=== PATIENT | male | born 1950 | race Caucasian/White ===

== ENCOUNTER 2018-02-14 14:45 | Inpatient (IN) | payer MEDICARE, OTHER ==
[2018-02-14] VITALS (7 sets, daily range): BP systolic 146–166; BP diastolic 53–74; PULSE 85–94; RESP 16–20; TEMP 96.6–98; O2SAT 93–97
[~2018-02-14] VITALS: Ht 175.3 cm; Wt 88.9 kg
[~2018-02-14 14:45] MED LIST: ALBU8I INH; HYDR-2768 PO; LISI40TA PO; SYMB80AE INH; TAMS0.4C67 PO; ZITH250T PO
[2018-02-14] MEDS ORDERED: VENTAER INH (15:03)
--- NOTE | 2018-02-14 15:04 | PD ---
HPI Chief Complaint: Abnormal Results Time Seen by Provider: 15:03 Travel History International Travel<30 days: No Contact w/Intl Traveler<30days: No Traveled to known affect area: No History of Present Illness HPI 67-year-old male came to the emergency room with history of abnormal labs as seen by [facility] today. Patient was told that his blood sugar was 567 and his potassium was 2.7. Patient was diagnosed with diabetes but was on diet control. He says for past about 3-4 weeks he has been drinking a lot of water and urinating a lot as well. He has lost about 15 pounds. He has had some blurred vision. Patient has history of COPD and has been short of breath. He noticed some ankle swelling as well. No history of chest pain. No history of syncopal episode. [facility] had asked him to come to the emergency room to be checked out. Vital signs are stable. His bedside blood glucose in the ER read high on the monitor. No history of vomiting or diarrhea. Patient is not a smoker. [facility] Past Medical History Narrative Medical List of his past medical, surgical, social and family history is reviewed from the nursing note. Hx Anticoagulant Therapy: Yes (asa 81mg) Asthma: Yes Cardiovascular Problems: Yes (htn on meds) Diabetes: Yes Patient Takes Glucophage: No Diminished Hearing: No Hypertension: Yes Respiratory: Yes (hx of asthma) Influenza Vaccination: No Social History Alcohol Use: Yes (DAILY) Tobacco Use: No (Quit) Substance Use: No Allergies-Medications (Allergen,Severity, Reaction): Coded Allergies: No Known Allergies (Unverified Allergy, Unknown, 02/14/18) Comments No known drug allergies Reported Meds & Prescriptions Reported Meds & Active Scripts Active Reported Amlodipine (Amlodipine Besylate) 5 Mg Tab 5 Mg PO DAILY Singulair (Montelukast Sodium) 10 Mg Tab 10 Mg PO HS Asmanex 120 Act Twisthaler (Mometasone 120 Act Inh) 220 Mcg/Act Inh 1 Puff INH BID Atorvastatin (Atorvastatin Calcium) 20 Mg Tab 20 Mg PO HS Doxazosin (Doxazosin Mesylate) 4 Mg Tab 4 Mg PO DAILY Hydrochlorothiazide 25 Mg Tab 25 Mg PO DAILY Losartan (Losartan Potassium) 100 Mg Tab 100 Mg PO DAILY Ventolin Hfa 18 GM Inh (Albuterol Sulfate) 90 Mcg/Act Aer 2 Puff INH Q4-6H PRN Narrative Medication List of his home medications reviewed from the nursing note Review of Systems Except as stated in HPI: all other systems reviewed are Neg Endocrine: Positive: Polyuria, Polydipsia Physical Exam Narrative GENERAL: Awake, alert, mild distress SKIN: Focused skin assessment warm/dry. HEAD: Atraumatic. Normocephalic. EYES: Pupils equal and round. No scleral icterus. No injection or drainage. ENT: No nasal bleeding or discharge. Mucous membranes pink and moist. NECK: Trachea midline. No JVD. CARDIOVASCULAR: Regular rate and rhythm. No murmur appreciated. RESPIRATORY: No accessory muscle use. Clear to auscultation. Breath sounds equal bilaterally. GASTROINTESTINAL: Abdomen soft, non-tender, nondistended. Hepatic and splenic margins not palpable. MUSCULOSKELETAL: No obvious deformities. No clubbing. No cyanosis. 1+ pedal edema. NEUROLOGICAL: Awake and alert. No obvious cranial nerve deficits. Motor grossly within normal limits. Normal speech. PSYCHIATRIC: Appropriate mood and affect; insight and judgment normal. Data Data Last Documented VS Vital Signs Date Time Temp Pulse Resp B/P (MAP) Pulse Ox O2 Delivery O2 Flow Rate FiO2 02/14/18 16:06 95 Nasal Cannula 2.00 02/14/18 15:16 85 18 166/74 (104) 02/14/18 14:52 98.0 Orders Orders Electrocardiogram (02/14/18 15:11) Complete Blood Count With Diff (02/14/18 15:11) Comprehensive Metabolic Panel (02/14/18 15:11) Beta Hydroxybutyrate (Acetone) (02/14/18 15:11) Urinalysis - C+S If Indicated (02/14/18 15:11) Ecg Monitoring (02/14/18 15:11) Iv Access Insert/Monitor (02/14/18 15:11) Oximetry (02/14/18 15:11) NPO (02/14/18 15:11) Sodium Chlor 0.9% 1000 Ml Inj (Ns 1000 M (02/14/18 15:11) Sodium Chlor 0.9% 1000 Ml Inj (Ns 1000 M (02/14/18 15:41) Sodium Chloride 0.9% Flush (Ns Flush) (02/14/18 15:15) B-Type Natriuretic Peptide (02/14/18 15:18) Chest, Single Ap (02/14/18 ) Insulin Human Regular Inj (Novolin R Inj (02/14/18 15:45) Oxygen Administration (02/14/18 15:43) Albuterol-Ipratropium Neb (Duoneb Neb) (02/14/18 15:45) Sodium Chloride 0.9% Flush (Ns Flush) (02/14/18 15:45) Place In Observation (02/14/18 ) Vital Signs (Adult) Q4H (02/14/18 16:06) Activity Oob Ad Jennifer (02/14/18 16:06) Diet 1800 Ada Cons Carb (02/14/18 Dinner) Sodium Chlor 0.9% 1000 Ml Inj (Ns 1000 M (02/14/18 16:06) Sodium Chloride 0.9% Flush (Ns Flush) (02/14/18 16:15) Sodium Chloride 0.9% Flush (Ns Flush) (02/14/18 21:00) Acetaminophen (Tylenol) (02/14/18 16:15) Basic Metabolic Panel (Bmp) (02/15/18 06:00) Complete Blood Count With Diff (02/15/18 06:00) Naloxone Inj (Narcan Inj) (02/14/18 16:15) Bisacodyl Supp (Dulcolax Supp) (02/14/18 16:15) Consult Staffing Administrator (02/14/18 ) Potassium Chlor 20 Meq Premix (Kcl 20 Me (02/14/18 16:15) Potassium Chloride (Kcl) (02/14/18 16:15) Admit Order (Ed Use Only) (02/14/18 16:05) Labs Laboratory Tests Test 02/14/18 13:10 02/14/18 15:28 02/14/18 15:55 White Blood Count 7.0 TH/MM3 Red Blood Count 3.79 MIL/MM3 Hemoglobin 12.1 GM/DL Hematocrit 35.5 % Mean Corpuscular Volume 93.6 FL Mean Corpuscular Hemoglobin 31.8 PG Mean Corpuscular Hemoglobin Concent 33.9 % Red Cell Distribution Width 11.8 % Platelet Count 234 TH/MM3 Mean Platelet Volume 9.9 FL Neutrophils (%) (Auto) 72.2 % Lymphocytes (%) (Auto) 19.4 % Monocytes (%) (Auto) 6.2 % Eosinophils (%) (Auto) 1.6 % Basophils (%) (Auto) 0.6 % Neutrophils # (Auto) 5.1 TH/MM3 Lymphocytes # (Auto) 1.4 TH/MM3 Monocytes # (Auto) 0.4 TH/MM3 Eosinophils # (Auto) 0.1 TH/MM3 Basophils # (Auto) 0.0 TH/MM3 CBC Comment DIFF FINAL Differential Comment Blood Urea Nitrogen 31 MG/DL Creatinine 1.70 MG/DL Random Glucose 863 MG/DL Total Protein 7.2 GM/DL Albumin 3.0 GM/DL Calcium Level 8.6 MG/DL Alkaline Phosphatase 97 U/L Aspartate Amino Transf (AST/SGOT) 13 U/L Alanine Aminotransferase (ALT/SGPT) 25 U/L Total Bilirubin 0.6 MG/DL Sodium Level 128 MEQ/L Potassium Level 2.9 MEQ/L Chloride Level 89 MEQ/L Carbon Dioxide Level 29.0 MEQ/L Anion Gap 10 MEQ/L Estimat Glomerular Filtration Rate 40 ML/MIN Hemoglobin A1c 14.5 % B-Hydroxybutyrate 0.40 MMOL/L B-Type Natriuretic Peptide 50 PG/ML Urine Collection Type CLEAN CATCH Urine Color YELLOW Urine Turbidity CLEAR Urine pH 6.0 Urine Specific [place] LESS/EQUAL 1.005 Urine Protein NEG mg/dL Urine Glucose (UA) 1000 OR GREATER mg/dL Urine Ketones NEG mg/dL Urine Occult Blood NEG Urine Nitrite NEG Urine Bilirubin NEG Urine Urobilinogen 0.2 MG/DL Urine Leukocyte Esterase NEG Urine Squamous Epithelial Cells 0-5 /hpf Microscopic Urinalysis Comment CULT NOT INDICATED Urine Collection Time 1555 MDM Medical Decision Making Medical Screen Exam Complete: Yes Emergency Medical Condition: Yes Medical Record Reviewed: Yes Interpretation(s) Twelve-lead EKG was reviewed by me. Normal sinus rhythm, normal axis, nonspecific ST-T wave changes. Heart rate of 85 bpm. Differential Diagnosis Hyperglycemia, DKA, elect light abnormal Narrative Course 4:04 PM blood test results are back. Blood sugar is more than 800. Anion gap is within normal limit. Patient has hyponatremia and hypokalemia. I would order for potassium replacement. Awaiting for the hospitalist to call back for admission. Have ordered 10 units of insulin as well. 2 L of IV fluid boluses been given. Chest x-ray is within normal limits Critical Care Narrative Aggregate critical care time was 30 minutes. Time to perform other separately billable procedures was not included in the critical care time. My time did not include minutes spent treating any other patients simultaneously or on activities that did not directly contribute to the patient's treatment. The services I provided to this patient were to treat and/or prevent clinically significant deterioration that could result in: Hyperglycemia, hypokalemia, potassium replacement IV I provided critical care services requiring my management, as noted below: Chart data review, documentation time, medication orders and management, vital sign assessments/reviewing monitor data, ordering and reviewing lab tests, ordering and interpreting/reviewing x-rays and diagnostic studies, care of the patient and discussion of the patient with the admitting physicians. Procedures EKG Prior to Arrival: No Diagnosis Primary Impression: Hyperglycemia Additional Impression: Hypokalemia Admitting Information Admitting Physician Requests: Admit Scripts Insulin Aspart Inj (Novolog Inj) 100 Unit/Ml Inj 1 UNITS SQ ACHS SLIDING SCALE for diabetes for 30 Days, #1 VIAL 2 Refills Sliding scale as follows Less than 70 no insulin 150-199 1 unit 200-249 3 units 250-299 5 units 300-349 7 units greater than 349 9 units Prov: Yeny Steward 02/16/18 Metformin (Metformin) 500 Mg Tab 500 MG PO HS for Blood Sugar Management for 30 Days, #30 TAB 0 Refills With a meal Prov: Yeny Steward 02/16/18 Insulin Detemir Inj (Levemir Inj) 1,000 unit/ 10 ML Vial 10 UNITS SQ BID for diabetes for 30 Days, #1 VIAL 2 Refills Do not mix with any other Insulin. Prov: Yeny Steward 02/16/18 Blood Glucose Monitoring W/Device (Blood Glucose Monitoring W/Device) 1 Kit Kit KIT .XX DIRECTED for Blood Sugar Management, #1 0 Refills Prov: Yeny Steward 02/16/18 Blood Glucose Test Strips (Blood Glucose Test Strips) Strips Strip EA .XX DIRECTED for Blood Sugar Management, #1 0 Refills Prov: Yeny Steward 02/16/18 Lancets (Lancets) 1 Mis Mis EA .XX DIRECTED for Blood Sugar Management, #1 0 Refills Prov: Yeny Steward 02/16/18 Daniel Blankenship MD Feb 14, 2018 15:04
[2018-02-14] MEDS ORDERED: SODIUM CHLOR 0.9% 1000 ML INJ 1,000 ML IV ONE ×2 (15:11→15:41)
[2018-02-14] MEDS ORDERED: SODIUM CHLORIDE 0.9% FLUSH 10 ML FLUSH IVF PRN ×2 (15:15→15:45)
[2018-02-14 15:20] LABS: AUTOMATED NEUTROPHIL # 5.1 TH/MM3 (1.8-7.7); BASOPHIL % 0.6 % (0.0-2.0); EOSINOPHIL # 0.1 TH/MM3 (0-0.4); EOSINOPHIL % 1.6 % (0.0-4.0); HEMATOCRIT 35.5 % (39.0-51.0); HEMOGLOBIN 12.1 GM/DL (13.0-17.0); LYMPH % 19.4 % (9.0-44.0); LYMPHOCYTE # 1.4 TH/MM3 (1.0-4.8); MEAN CELL VOLUME 93.6 FL (80.0-100.0); MEAN CORPUSCULAR HEMOGLOBIN 31.8 PG (27.0-34.0); MEAN CORPUSCULAR HGB CONC 33.9 % (32.0-36.0); MEAN PLATELET VOLUME 9.9 FL (7.0-11.0); MONO % 6.2 % (0.0-8.0); MONOCYTE # 0.4 TH/MM3 (0-0.9); NEUT % 72.2 % (16.0-70.0); PLATELET COUNT 234 TH/MM3 (150-450); RED BLOOD COUNT 3.79 MIL/MM3 (4.50-5.90); RED CELL DISTRIBUTION WIDTH 11.8 % (11.6-17.2)
[2018-02-14] MEDS ORDERED: DOXA1TAB34 PO (15:31)
[2018-02-14] MEDS ORDERED: ATOR20TA15 PO (15:31)
[2018-02-14] MEDS ORDERED: HYDR25TA5 PO (15:31)
[2018-02-14] MEDS ORDERED: MONT10TA2 PO (15:31)
[2018-02-14] MEDS ORDERED: ASMA220A INH (15:31)
[2018-02-14] MEDS ORDERED: AMLO5TAB2 PO (15:31)
[2018-02-14] MEDS ORDERED: LOSA100T PO (15:31)
--- NOTE | 2018-02-14 15:38 | RADRPT ---
EXAM DATE: 02/14/2018 3:36 PM EDT AGE/SEX: 67 years / Male INDICATIONS: Shortness of breath. CLINICAL DATA: This is the patient's initial encounter. Patient reports that signs and symptoms have been present for 1 day and indicates a pain score of 0/10. MEDICAL/SURGICAL HISTORY: Asthma. None. COMPARISON: [facility], CHEST PA & LAT, 05/21/2016. . FINDINGS: Left basilar streakiness is noted consistent with atelectasis and/or scarring. No focal alveolar cons olidation is noted. No pulmonary edema is noted. The heart is normal. CONCLUSION: Left basilar streakiness is noted consistent with atelectasis and/or scarring. Electronically signed by: Augustine Lerma MD 02/14/2018 3:37 PM EDT
[2018-02-14 15:39] LABS: ALKALINE PHOSPHATASE 97 U/L (45-117); ALT (GPT) 25 U/L (12-78); AST (GOT) 13 U/L (15-37); BLOOD UREA NITROGEN 31 MG/DL (7-18); CALCIUM 8.6 MG/DL (8.5-10.1); CHLORIDE 89 MEQ/L (98-107); GLOMERULAR FILTRATION RATE 40 ML/MIN (>89); SODIUM (NA) 128 MEQ/L (136-145); TOTAL BILIRUBIN ADULT 0.6 MG/DL (0.2-1.0); TOTAL PROTEIN 7.2 GM/DL (6.4-8.2)
[2018-02-14 15:41] LABS: GLUCOSE,RANDOM 863 MG/DL (74-106)
[2018-02-14] MEDS ORDERED: INSULIN HUMAN REGULAR 1,000 UNITS/10 ML VIAL IV PUSH ONE ×3 (15:45→20:15)
[2018-02-14 15:59] LABS: BILIRUBIN, URINE NEG (NEG); BLOOD, URINE NEG (NEG); GLUCOSE,URINE 1000 OR GREATER mg/dL (NEG); KETONE, URINE NEG (NEG); NITRITE,URINE NEG (NEG); URINE COLOR YELLOW (YELLW/STRAW); URINE LEUKOCYTE ESTERASE NEG (NEG)
[2018-02-14] MEDS: RESP: ALBUTEROL 2.5 MG/IPRATROPIUM 0.5 MG NEB (SCH) INH ×2 (16:06→16:07)
[2018-02-14 16:08] LABS: SQUAMOUS EPITHELIAL CELL URINE 0-5 /hpf (0-5)
--- NOTE | 2018-02-14 16:11 | HHI.HP ---
[facility] Service [facility] Primary Care Physician [facility] Admission Diagnosis Hyperglycemia, hypokalemia Diagnoses: (1) Hyperglycemia (2) Hypokalemia Chief Complaint: Abnormal labs Travel History International Travel<30 Days: No Contact w/Intl Traveler <30 Da: No Traveled to Known Affected Are: No History of Present Illness This is a pleasant 67-year-old male patient with a known medical history of hypertension, COPD, asthma and diet-controlled diabetes who presented to the ED with abnormal labs. Patient states he was at the [place] [facility] today he was told his blood sugar was over 500 and his potassium was low. Patient states that he has been feeling increasingly fatigued, dizzy, lightheaded and drinking more water over the past couple weeks. Patient does admit to losing 15 pounds as well. Denies any headache, blurry vision or double vision. Patient does admit to history of COPD, does state that he has recently ran out of his Ventolin inhaler and has noticed increasing shortness of breath especially with exertion. Patient denies any recent fever, chills, cough, shortness of breath, abdominal pain, nausea, vomiting, diarrhea or dysuria. Patient denies any chest pain. Patient does admit to being diagnosed with prediabetes, states it has been diet controlled and he has not needed medication in the past. Patient is unaware of any recent A1c levels. Review of Systems Constitutional: COMPLAINS OF: Fatigue, DENIES: Fever, Chills Endocrine: COMPLAINS OF: Polydipsia, Polyphagia Eyes: DENIES: Blurred vision, Diplopia Respiratory: DENIES: Cough, Sputum production, Shortness of breath Cardiovascular: DENIES: Chest pain, Palpitations, Lower Extremity Edema Gastrointestinal: DENIES: Abdominal pain, Black stools, Bloody stools, Constipation, Diarrhea, Nausea, Vomiting Musculoskeletal: DENIES: Joint pain Hematologic/lymphatic: DENIES: Bruising Immunologic/allergic: DENIES: Eczema Neurologic: DENIES: Abnormal gait Psychiatric: DENIES: Anxiety Except as stated in HPI: all other systems reviewed are Neg Past Family Social History Past Medical History Hypertension Diabetes Asthma Past Surgical History Denies any prior surgery Reported Medications Active Reported Amlodipine (Amlodipine Besylate) 5 Mg Tab 5 Mg PO DAILY Singulair (Montelukast Sodium) 10 Mg Tab 10 Mg PO HS Asmanex 120 Act Twisthaler (Mometasone 120 Act Inh) 220 Mcg/Act Inh 1 Puff INH BID Atorvastatin (Atorvastatin Calcium) 20 Mg Tab 20 Mg PO HS Doxazosin (Doxazosin Mesylate) 4 Mg Tab 4 Mg PO DAILY Hydrochlorothiazide 25 Mg Tab 25 Mg PO DAILY Losartan (Losartan Potassium) 100 Mg Tab 100 Mg PO DAILY Ventolin Hfa 18 GM Inh (Albuterol Sulfate) 90 Mcg/Act Aer 2 Puff INH Q4-6H PRN Allergies: Coded Allergies: No Known Allergies (Unverified Allergy, Unknown, 02/14/18) Active Ordered Medications Current Medications Medications (Trade) Dose Ordered Sig/Nicole Route Start Time Stop Time Status Last Admin Sodium Chloride 1,000 ml @ 2,000 mls/hr Q30M ONCE IV 02/14/18 15:41 02/14/18 16:10 (NS Flush) 2 ml UNSCH PRN IVF 02/14/18 15:15 (Duoneb Neb) 1 ampule Q15M INH 02/14/18 15:45 02/14/18 16:16 02/14/18 16:07 (NS Flush) 2 ml UNSCH PRN IVF 02/14/18 15:45 Sodium Chloride 1,000 ml @ 100 mls/hr Q10H IV 02/14/18 16:06 UNV (NS Flush) 2 ml UNSCH PRN IV FLUSH 02/14/18 16:15 UNV (NS Flush) 2 ml BID IV FLUSH 02/14/18 21:00 UNV (Tylenol) 650 mg Q4H PRN PO 02/14/18 16:15 UNV (Narcan Inj) 0.4 mg UNSCH PRN IV PUSH 02/14/18 16:15 UNV (Dulcolax Supp) 10 mg DAILY PRN RECTAL 02/14/18 16:15 UNV Potassium Chloride 100 ml @ 50 mls/hr ONCE ONCE IV 02/14/18 16:15 02/14/18 18:14 (KCl) 40 meq ONCE ONCE PO 02/14/18 16:15 02/14/18 16:16 Family History Paternal medical history significant for prostate cancer. Mother is healthy. Social History Denies any tobacco abuse, does admit to drinking 2 beers per day. Denies any illicit drug use. Physical Exam Vital Signs Vital Signs Date Time Temp Pulse Resp B/P (MAP) Pulse Ox O2 Delivery O2 Flow Rate FiO2 02/14/18 15:50 98 Nasal Cannula 2.00 02/14/18 15:16 85 18 166/74 (104) 96 Room Air 02/14/18 14:52 98.0 90 16 148/71 (96) 96 Physical Exam GENERAL: Well-developed, well-nourished patient in NAD. SKIN: Warm and dry. No rash. HEAD: Normocephalic. Atraumatic. EYES: Pupils equal and round. No scleral icterus. No injection or drainage. ENT: No nasal bleeding or discharge. Mucous membranes pink and moist. NECK: Supple. Trachea midline. CARDIOVASCULAR: Regular rate and rhythm. S1, S2 noted. No murmur appreciated. RESPIRATORY: No accessory muscle use. Diffuse expiratory wheezing in lung west. Breath sounds equal bilaterally. GASTROINTESTINAL: Abdomen soft, non-tender, nondistended. Normoactive bowel sounds x4. MUSCULOSKELETAL: No obvious deformities. Extremities without clubbing, cyanosis , or edema. NEUROLOGICAL: Awake and alert. No obvious cranial nerve deficits. Motor grossly within normal limits. 5/5 muscle strength in bilateral upper and lower extremities. Normal speech. PSYCHIATRIC: Appropriate mood and affect; insight and judgment normal. Laboratory Laboratory Tests Test 02/14/18 13:10 02/14/18 15:28 02/14/18 15:55 White Blood Count 7.0 Red Blood Count 3.79 Hemoglobin 12.1 Hematocrit 35.5 Mean Corpuscular Volume 93.6 Mean Corpuscular Hemoglobin 31.8 Mean Corpuscular Hemoglobin Concent 33.9 Red Cell Distribution Width 11.8 Platelet Count 234 Mean Platelet Volume 9.9 Neutrophils (%) (Auto) 72.2 Lymphocytes (%) (Auto) 19.4 Monocytes (%) (Auto) 6.2 Eosinophils (%) (Auto) 1.6 Basophils (%) (Auto) 0.6 Neutrophils # (Auto) 5.1 Lymphocytes # (Auto) 1.4 Monocytes # (Auto) 0.4 Eosinophils # (Auto) 0.1 Basophils # (Auto) 0.0 CBC Comment DIFF FINAL Differential Comment Blood Urea Nitrogen 31 Creatinine 1.70 Random Glucose 863 Total Protein 7.2 Albumin 3.0 Calcium Level 8.6 Alkaline Phosphatase 97 Aspartate Amino Transf (AST/SGOT) 13 Alanine Aminotransferase (ALT/SGPT) 25 Total Bilirubin 0.6 Sodium Level 128 Potassium Level 2.9 Chloride Level 89 Carbon Dioxide Level 29.0 Anion Gap 10 Estimat Glomerular Filtration Rate 40 B-Hydroxybutyrate 0.40 B-Type Natriuretic Peptide 50 Urine Collection Type CLEAN CATCH Urine Color YELLOW Urine Turbidity CLEAR Urine pH 6.0 Urine Specific [place] LESS/EQUAL 1.005 Urine Protein NEG Urine Glucose (UA) 1000 OR GREATER Urine Ketones NEG Urine Occult Blood NEG Urine Nitrite NEG Urine Bilirubin NEG Urine Urobilinogen 0.2 Urine Leukocyte Esterase NEG Urine Squamous Epithelial Cells 0-5 Microscopic Urinalysis Comment CULT NOT INDICATED Urine Collection Time 1555 Result Diagram: 02/14/18 1310 02/14/18 1310 Imaging Last Impressions Chest X-Ray 02/14/18 0000 Signed Impressions: CONCLUSION: Left basilar streakiness is noted consistent with atelectasis and/or scarring. Septic Shock Reassessment Septic shock perfusion: reassessment completed Caprini VTE Risk Assessment Caprini VTE Risk Assessment: Mod/High Risk (score >= 2) Caprini Risk Assessment Model Point Value = 1 Point Value = 2 Point Value = 3 Point Value = 5 Age 41-60 Minor surgery BMI > 25 kg/m2 Swollen legs Varicose veins or History of unexplained or recurrent spontaneous Oral contraceptives or hormone replacement Sepsis (< 1 month) Serious lung disease, including pneumonia (< 1 month) Abnormal pulmonary function Acute myocardial infarction Congestive heart failure (< 1 month) History of inflammatory bowel disease Medical patient at bed rest Age 61-74 Arthroscopic surgery Major open surgery (> 45 min) Laparoscopic surgery (> 45 min) Malignancy Confined to bed (> 72 hours) Immobilizing plaster cast Central venous access Age >= 75 History of VTE Family history of VTE Factor V Leiden Prothrombin [id number] Lupus anticoagulant Anticardiolipin antibodies Elevated serum homocysteine Heparin-induced thrombocytopenia Other congenital or acquired thrombophilia Stroke (< 1 month) Elective arthroplasty Hip, pelvis, or leg fracture Acute spinal cord injury (< 1 month) Prophylaxis Regimen Total Risk Factor Score Risk Level Prophylaxis Regimen 0-1 Low Early ambulation 2 Moderate Order ONE of the following: *Sequential Compression Device (SCD) *Heparin 5000 units SQ BID 3-4 Higher Order ONE of the following medications: *Heparin 5000 units SQ TID *Enoxaparin/Lovenox 40 mg SQ daily (WT < 150 kg, CrCl > 30 mL/min) *Enoxaparin/Lovenox 30 mg SQ daily (WT < 150 kg, CrCl > 10-29 mL/min) *Enoxaparin/Lovenox 30 mg SQ BID (WT < 150 kg, CrCl > 30 mL/min) AND/OR *Sequential Compression Device (SCD) 5 or more Highest Order ONE of the following medications: *Heparin 5000 units SQ TID (Preferred with Epidurals) *Enoxaparin/Lovenox 40 mg SQ daily (WT < 150 kg, CrCl > 30 mL/min) *Enoxaparin/Lovenox 30 mg SQ daily (WT < 150 kg, CrCl > 10-29 mL/min) *Enoxaparin/Lovenox 30 mg SQ BID (WT < 150 kg, CrCl > 30 mL/min) AND *Sequential Compression Device (SCD) Assessment and Plan Problem List: (1) Hyperglycemia ICD Code: R73.9 - Hyperglycemia, unspecified Status: Acute (2) Hypokalemia ICD Code: E87.6 - Hypokalemia Status: Acute Assessment and Plan This is a pleasant 67-year-old male patient with a known medical history of hypertension, COPD, asthma and diet-controlled diabetes who presented to the ED with abnormal labs. Patient states he was at the [place] [facility] today he was told his blood sugar was over 500 and his potassium was low. Hyperglycemia History of diet-controlled diabetes - Random glucose 863 on presentation, anion gap closed. Not in DKA. Was given 10 units IV insulin in ED. - Accu-Chek before meals at bedtime, sliding scale, cover as needed. Monitor blood sugar trends. - Will order hemoglobin A1c, follow. - Consult placed to hospital educator, input and recommendations pending. Acute kidney injury - Creatinine 1.7 and GFR 40 on presentation. - Denies any history of kidney disease. - UA negative. - Was given 2 L NS bolus in ED. Ensure hydration, continue IV fluid. - Monitor BMP. - Avoid nephrotoxins. If still elevated tomorrow morning patient will need kidney ultrasound. COPD with exacerbation and presence of hypoxia, need for supplemental O2 Asthma - Chest x-ray reviewed showing left basilar streakiness consistent with atelectasis or scarring. - Patient is requiring 2 L nasal cannula. Oxygen saturations 95%. Continue to monitor and wean as tolerated. - Wheezing on exam. Will start on low dose steroids. Duo nebs as needed and scheduled. Continue home Inhalers. - Continue home Singulair. Electrolyte imbalance Hyponatremia Hypokalemia - Potassium 2.9 presentation, sodium 128. - Replete. Given a total of 60 MEQ potassium in ED. - Continue IVF. Monitor BMP in am. Hypertension, chronic: Will continue home Amlodipine. Monitor blood pressure trends. Will hold home ARB and HCTZ for now due to MARGARET. Clonidine as needed. Hyperlipidemia: Continue home statin. DVT Prophylaxis: SCDs. Heparin. Yeny Steward Feb 14, 2018 16:11
[2018-02-14] MEDS ORDERED: BISACODYL 10 MG SUPP RECTAL PRN (16:15)
[2018-02-14] MEDS ORDERED: POTASSIUM CHLOR 20 MEQ PREMIX 100 ML IV ONE (16:15)
[2018-02-14] MEDS ORDERED: POTASSIUM CHLORIDE 20 MEQ CONTROLLED RELEASE TAB PO ONE (16:15)
[2018-02-14] MEDS ORDERED: SODIUM CHLORIDE 0.9% FLUSH 10 ML FLUSH IV FLUSH PRN (16:15)
[2018-02-14] MEDS ORDERED: ACETAMINOPHEN 325 MG TAB PO PRN (16:15)
[2018-02-14] MEDS ORDERED: NALOXONE HCL 0.4 MG/ML AMP IV PUSH PRN (16:15)
[2018-02-14] MEDS ORDERED: RESP: ALBUTEROL 2.5 MG/IPRATROPIUM 0.5 MG NEB (PRN) NEB (16:45)
[2018-02-14] MEDS ORDERED: cloNIDine HCL 0.1 MG TAB PO PRN (16:45)
[2018-02-14] MEDS ORDERED: DEXTROSE 50% IN WATER 50 ML VIAL(D50) IV PUSH PRN (16:45)
[2018-02-14] MEDS ORDERED: GLUCAGON 1 MG/ML VIAL OTHER PRN (16:45)
[2018-02-14] MEDS ORDERED: ALBUTEROL SULFATE 90 MCG/ACT HFA 8 GM INHALER INH PRN (16:45)
[2018-02-14] MEDS: INSULIN ASPART SUPPLEMENTAL SCALE SQ SCH ×2 (18:20→21:38)
[2018-02-14] MEDS: SODIUM CHLOR 0.9% 1000 ML INJ 1,000 ML IV SCH (18:48)
[2018-02-14] MEDS: RESP: ALBUTEROL 2.5 MG/IPRATROPIUM 0.5 MG NEB (SCH) NEB (19:42)
--- NOTE | 2018-02-14 20:30 | EKG ---
Date Performed: 02/14/2018 Time Performed: 15:15:33 PTAGE: 67 years EKG: Sinus rhythm WITH OCCASIONAL SUPRAVENTRICULAR PREMATURE COMPLEXES NONSPECIFIC T-WAVE ABNORMALITY BORDERLINE ECG PREVIOUS TRACING : 05/21/2016 11.16 DOCTOR: Jacinto Wilburn Interpretating Date/Time 02/14/2018 20:28:50
[2018-02-14] MEDS: FLUTICASONE PROPIONATE 110 MCG/ACT 12 GM INHALER INH SCH (21:00)
[2018-02-14] MEDS: MONTELUKAST SODIUM 10 MG TAB PO SCH (21:38)
[2018-02-14] MEDS: HEPARIN SODIUM - SQ 10,000 UNITS/ML VIAL SQ SCH (21:38)
[2018-02-14] MEDS: ATORVASTATIN 20 MG TAB PO SCH (21:38)
[2018-02-14] MEDS: SODIUM CHLORIDE 0.9% FLUSH 10 ML FLUSH IV FLUSH SCH (21:39)
[2018-02-14] MEDS: methylPREDNISolone SOD SUCC 40 MG/1 ML VIAL IV PUSH SCH (21:39)
[2018-02-15] VITALS (7 sets, daily range): BP systolic 136–157; BP diastolic 63–74; PULSE 62–73; RESP 19–21; TEMP 96.2–98.3; O2SAT 94–100
[2018-02-15] MEDS: SODIUM CHLOR 0.9% 1000 ML INJ 1,000 ML IV SCH (02:06)
[2018-02-15 05:34] LABS: AUTOMATED NEUTROPHIL # 6.2 TH/MM3 (1.8-7.7); BASOPHIL % 0.2 % (0.0-2.0); HEMATOCRIT 35.4 % (39.0-51.0); LYMPH % 6.7 % (9.0-44.0); LYMPHOCYTE # 0.5 TH/MM3 (1.0-4.8); MEAN CELL VOLUME 92.9 FL (80.0-100.0); MEAN CORPUSCULAR HEMOGLOBIN 31.4 PG (27.0-34.0); MEAN CORPUSCULAR HGB CONC 33.8 % (32.0-36.0); MEAN PLATELET VOLUME 9.6 FL (7.0-11.0); MONO % 0.4 % (0.0-8.0); NEUT % 92.7 % (16.0-70.0); PLATELET COUNT 239 TH/MM3 (150-450); RED BLOOD COUNT 3.82 MIL/MM3 (4.50-5.90); RED CELL DISTRIBUTION WIDTH 11.5 % (11.6-17.2); WHITE BLOOD COUNT 6.7 TH/MM3 (4.0-11.0)
[2018-02-15 05:53] LABS: BICARBONATE 26.9 MEQ/L (21.0-32.0); CALCIUM 8.4 MG/DL (8.5-10.1); CREATININE 1.2 MG/DL (0.60-1.30)
[2018-02-15] MEDS ORDERED: POTASSIUM CHLOR 20 MEQ PREMIX 100 ML IV ONE (06:15)
[2018-02-15] MEDS ORDERED: POTASSIUM BICARBONATE 25 MEQ EFFERVESCENT TAB PO ONE (06:15)
[2018-02-15] MEDS: RESP: ALBUTEROL 2.5 MG/IPRATROPIUM 0.5 MG NEB (SCH) NEB ×3 (07:33→19:58)
[2018-02-15] MEDS: INSULIN ASPART SUPPLEMENTAL SCALE SQ SCH ×4 (07:57→21:59)
[2018-02-15] MEDS: SODIUM CHLORIDE 0.9% FLUSH 10 ML FLUSH IV FLUSH SCH ×2 (08:55→21:53)
[2018-02-15] MEDS: methylPREDNISolone SOD SUCC 40 MG/1 ML VIAL IV PUSH SCH (08:55)
[2018-02-15] MEDS: DOXAZOSIN MESYLATE 4 MG TAB PO SCH (08:55)
[2018-02-15] MEDS: amLODIPine BESYLATE 5 MG TAB PO SCH (08:55)
[2018-02-15] MEDS: HEPARIN SODIUM - SQ 10,000 UNITS/ML VIAL SQ SCH ×2 (08:56→21:53)
[2018-02-15] MEDS: FLUTICASONE PROPIONATE 110 MCG/ACT 12 GM INHALER INH SCH ×2 (09:09→21:53)
--- NOTE | 2018-02-15 09:12 | HHI.PR ---
Subjective Remarks Follow-up electrolyte imbalance and hyperglycemia. Patient seen and examined, sitting up in bed comfortably in no apparent distress. Patient states he feels much improved. All symptoms have resolved. Patient has been eating well with no abdominal pain, nausea or vomiting. Patient's vital signs are stable overnight. Afebrile. Blood glucose is trending down. Potassium still low today. Will wean steroids. Continue to monitor. Objective Vitals Vital Signs Date Time Temp Pulse Resp B/P (MAP) Pulse Ox O2 Delivery O2 Flow Rate FiO2 02/15/18 07:57 98.3 62 19 157/74 (101) 95 02/15/18 07:36 96 Nasal Cannula 2.00 02/15/18 00:00 97.0 69 20 136/63 (87) 95 02/14/18 20:00 96.6 86 20 159/70 (99) 96 02/14/18 19:42 97 Nasal Cannula 2.00 02/14/18 17:00 97.9 87 18 146/67 (93) 93 02/14/18 16:54 02/14/18 16:34 94 18 157/53 (87) 95 Nasal Cannula 2.00 02/14/18 16:06 95 Nasal Cannula 2.00 02/14/18 15:50 98 Nasal Cannula 2.00 02/14/18 15:16 85 18 166/74 (104) 96 Room Air 02/14/18 14:52 98.0 90 16 148/71 (96) 96 I/O 02/14/18 02/14/18 02/14/18 02/15/18 02/15/18 02/15/18 06:59 14:59 22:59 06:59 14:59 22:59 Intake Total 1460 ml 2720 ml 820 ml Balance 1460 ml 2720 ml 820 ml Intake Oral 360 ml 720 ml 120 ml IV Total 1100 ml 2000 ml 700 ml # Voids 1 6 # Bowel Movements 0 Result Diagram: 02/15/1815 02/15/18 0515 Imaging Last Impressions Chest X-Ray 02/14/18 0000 Signed Impressions: CONCLUSION: Left basilar streakiness is noted consistent with atelectasis and/or scarring. Objective Remarks GENERAL: Well-developed, well-nourished patient in NAD. SKIN: Warm and dry. No rash. HEAD: Normocephalic. Atraumatic. EYES: Pupils equal and round. No scleral icterus. No injection or drainage. ENT: No nasal bleeding or discharge. Mucous membranes pink and moist. NECK: Supple. Trachea midline. CARDIOVASCULAR: Regular rate and rhythm. S1, S2 noted. No murmur appreciated. RESPIRATORY: No accessory muscle use. Clear to auscultation. Breath sounds equal bilaterally. GASTROINTESTINAL: Abdomen soft, non-tender, nondistended. Round. Normoactive bowel sounds x4. MUSCULOSKELETAL: No obvious deformities. Extremities without clubbing, cyanosis , or edema. NEUROLOGICAL: Awake and alert. No obvious cranial nerve deficits. Motor grossly within normal limits. 5/5 muscle strength in bilateral upper and lower extremities. Normal speech. PSYCHIATRIC: Appropriate mood and affect; insight and judgment normal. A/P Problem List: (1) Hyperglycemia ICD Code: R73.9 - Hyperglycemia, unspecified Status: Acute (2) Hypokalemia ICD Code: E87.6 - Hypokalemia Status: Acute Assessment and Plan This is a pleasant 67-year-old male patient with a known medical history of hypertension, COPD, asthma and diet-controlled diabetes who presented to the ED with abnormal labs. Patient states he was at the [place] clinic today he was told his blood sugar was over 500 and his potassium was low. Hyperglycemia History of diet-controlled diabetes - Random glucose 863 on presentation, anion gap closed. Not in DKA. Was given 10 units IV insulin in ED. Was also given another 25 units IV of insulin overnight. - Accu-Chek before meals at bedtime, sliding scale, cover as needed. Monitor blood sugar trends. Trending down. IV steroids may be contributing to hyperglycemia. Will wean. - Will order hemoglobin A1c, follow. - Consult placed to svp group director, input and recommendations pending. Acute kidney injury - Creatinine 1.7 and GFR 40 on presentation. Improved creatinine 1.2, GFR 60. - Denies any history of kidney disease. - UA negative. - Was given 2 L NS bolus in ED. patient tolerating p.o. intake will DC IV fluids. - Monitor BMP. - Avoid nephrotoxins. COPD with exacerbation and presence of hypoxia, need for supplemental O2. Resolved. Asthma - Chest x-ray reviewed showing left basilar streakiness consistent with atelectasis or scarring. - Hypoxia improved. Patient is on room air with adequate oxygen saturation.. Continue to monitor. - Wheezing improved today. We will wean IV steroids. Duo nebs as needed and scheduled. Continue home Inhalers. - Continue home Singulair. Electrolyte imbalance Hyponatremia Hypokalemia - Potassium 2.9 presentation, sodium 128. - No improvement today despite replacement, was given a total of 60 meq potassium in ED. Potassium 2.9 today. - Will continue to replete. Follow BMP at 3 PM today. Hypertension, chronic: Will continue home Amlodipine. Monitor blood pressure trends. Will hold home ARB and HCTZ for now due to MARGARET. Clonidine as needed. Hyperlipidemia: Continue home statin. DVT Prophylaxis: SCDs. Heparin. Yeny Steward Feb 15, 2018 09:12
--- NOTE | 2018-02-15 15:21 | HHI.FF ---
Face to Face Verification Diagnosis: (1) Hyperglycemia Home Health Nursing Order: Diabetic education Nursing assessment with vital signs I have seen patient Augustine Choe, III on 02/15/18. My clinical findings support the need for the requested home health care services because: Ltd mobility - disease progression Limited ability to care for self Injectable med education/admin I certify that my clinical findings support that this patient is homebound because: Need for psychosocial assistance Betzy Gross MD Feb 15, 2018 15:21
[2018-02-15] MEDS: INSULIN ASPART 1,000 UNITS/10 ML VIAL SQ SCH (17:31)
[2018-02-15] MEDS ORDERED: INSULIN DETEMIR 100 UNITS/ML VIAL SQ ONE (18:15)
[2018-02-15 18:20] LABS: HEMOGLOBIN A1C 14.5 % (4.3-6.0)
[2018-02-15] MEDS ORDERED: INSULIN DETEMIR 100 UNITS/ML VIAL SQ SCH (21:00)
[2018-02-15] MEDS: ATORVASTATIN 20 MG TAB PO SCH (21:53)
[2018-02-15] MEDS: MONTELUKAST SODIUM 10 MG TAB PO SCH (21:53)
[2018-02-16] VITALS: BP 132/62; PULSE 68; RESP 20; TEMP 96.2; O2SAT 93
[2018-02-16] MEDS: RESP: ALBUTEROL 2.5 MG/IPRATROPIUM 0.5 MG NEB (SCH) NEB (07:33)
[2018-02-16 07:34] VITALS: O2SAT 93
[2018-02-16] MEDS: INSULIN ASPART 1,000 UNITS/10 ML VIAL SQ SCH ×2 (08:30→12:15)
[2018-02-16] MEDS: FLUTICASONE PROPIONATE 110 MCG/ACT 12 GM INHALER INH SCH (08:30)
[2018-02-16] MEDS: DOXAZOSIN MESYLATE 4 MG TAB PO SCH (08:30)
[2018-02-16] MEDS: HEPARIN SODIUM - SQ 10,000 UNITS/ML VIAL SQ SCH (08:30)
[2018-02-16] MEDS: INSULIN ASPART SUPPLEMENTAL SCALE SQ SCH ×2 (08:30→12:15)
[2018-02-16] MEDS: SODIUM CHLORIDE 0.9% FLUSH 10 ML FLUSH IV FLUSH SCH (08:31)
[2018-02-16] MEDS: amLODIPine BESYLATE 5 MG TAB PO SCH (08:31)
[2018-02-16 08:49] VITALS: BP 174/73; PULSE 75; RESP 16; TEMP 96.8; O2SAT 93
[2018-02-16] MEDS ORDERED: methylPREDNISolone SOD SUCC 40 MG/1 ML VIAL IV PUSH SCH (09:00)
[2018-02-16] MEDS ORDERED: predniSONE 20 MG TAB PO SCH (09:00)
[2018-02-16] MEDS ORDERED: LANCETS1 MI1 (09:35)
[2018-02-16] MEDS ORDERED: BLOOD GLUCOSE M1 KIT (09:35)
[2018-02-16] MEDS ORDERED: BLOOD GLUCOSE T1 TES (09:35)
[2018-02-16] MEDS ORDERED: LEVEMIR SQ (09:41)
[2018-02-16] MEDS ORDERED: NOVOLOGSS SQ ×2 (09:41→12:48)
--- NOTE | 2018-02-16 09:44 | HHI.DS ---
Discharge Summary Admission Date Feb 14, 2018 at 17:12 Discharge Date: Feb 16, 2018 Admitting Diagnosis Hyperglycemia, hypokalemia (1) Hyperglycemia ICD Code: R73.9 - Hyperglycemia, unspecified Status: Acute (2) Hypokalemia ICD Code: E87.6 - Hypokalemia Status: Acute Procedures See below Brief History - From Admission This is a pleasant 67-year-old male patient with a known medical history of hypertension, COPD, asthma and diet-controlled diabetes who presented to the ED with abnormal labs. Patient states he was at the [place] [facility] today he was told his blood sugar was over 500 and his potassium was low. Patient states that he has been feeling increasingly fatigued, dizzy, lightheaded and drinking more water over the past couple weeks. Patient does admit to losing 15 pounds as well. Denies any headache, blurry vision or double vision. Patient does admit to history of COPD, does state that he has recently ran out of his Ventolin inhaler and has noticed increasing shortness of breath especially with exertion. Patient denies any recent fever, chills, cough, shortness of breath, abdominal pain, nausea, vomiting, diarrhea or dysuria. Patient denies any chest pain. Patient does admit to being diagnosed with prediabetes, states it has been diet controlled and he has not needed medication in the past. Patient is unaware of any recent A1c levels. CBC/BMP: 02/15/18 0515 02/15/18 1620 Significant Findings Laboratory Tests Test 02/14/18 13:10 02/14/18 15:28 02/14/18 15:55 02/14/18 17:35 Red Blood Count 3.79 MIL/MM3 (4.50-5.90) Hemoglobin 12.1 GM/DL (13.0-17.0) Hematocrit 35.5 % (39.0-51.0) Neutrophils (%) (Auto) 72.2 % (16.0-70.0) Blood Urea Nitrogen 31 MG/DL (7-18) Creatinine 1.70 MG/DL (0.60-1.30) Random Glucose 863 MG/DL (74-106) 803 MG/DL (74-106) Albumin 3.0 GM/DL (3.4-5.0) Aspartate Amino Transf (AST/SGOT) 13 U/L (15-37) Sodium Level 128 MEQ/L (136-145) Potassium Level 2.9 MEQ/L (3.5-5.1) Chloride Level 89 MEQ/L (98-107) Estimat Glomerular Filtration Rate 40 ML/MIN (>89) Hemoglobin A1c 14.5 % (4.3-6.0) B-Hydroxybutyrate 0.40 MMOL/L (0.00-0.39) Urine Glucose (UA) 1000 OR GREATER mg/dL Test 02/14/18 19:30 02/15/18 05:15 02/15/18 16:20 Random Glucose 686 MG/DL (74-106) 361 MG/DL (74-106) Red Blood Count 3.82 MIL/MM3 (4.50-5.90) Hemoglobin 12.0 GM/DL (13.0-17.0) Hematocrit 35.4 % (39.0-51.0) Red Cell Distribution Width 11.5 % (11.6-17.2) Neutrophils (%) (Auto) 92.7 % (16.0-70.0) Lymphocytes (%) (Auto) 6.7 % (9.0-44.0) Lymphocytes # (Auto) 0.5 TH/MM3 (1.0-4.8) Blood Urea Nitrogen 26 MG/DL (7-18) Calcium Level 8.4 MG/DL (8.5-10.1) Potassium Level 2.9 MEQ/L (3.5-5.1) 3.4 MEQ/L (3.5-5.1) Estimat Glomerular Filtration Rate 60 ML/MIN (>89) Imaging Last Impressions Chest X-Ray 02/14/18 0000 Signed Impressions: CONCLUSION: Left basilar streakiness is noted consistent with atelectasis and/or scarring. PE at Discharge GENERAL: Well-developed, well-nourished patient in NAD. SKIN: Warm and dry. No rash. HEAD: Normocephalic. Atraumatic. EYES: Pupils equal and round. No scleral icterus. No injection or drainage. ENT: No nasal bleeding or discharge. Mucous membranes pink and moist. NECK: Supple. Trachea midline. CARDIOVASCULAR: Regular rate and rhythm. S1, S2 noted. No murmur appreciated. RESPIRATORY: No accessory muscle use. Clear to auscultation. Breath sounds equal bilaterally. GASTROINTESTINAL: Abdomen soft, non-tender, nondistended. Round. Normoactive bowel sounds x4. MUSCULOSKELETAL: No obvious deformities. Extremities without clubbing, cyanosis , or edema. NEUROLOGICAL: Awake and alert. No obvious cranial nerve deficits. Motor grossly within normal limits. 5/5 muscle strength in bilateral upper and lower extremities. Normal speech. PSYCHIATRIC: Appropriate mood and affect; insight and judgment normal. Pt update on day of discharge Follow-up hyperglycemia. Patient seen and examined, sitting up in chair comfortably no apparent distress. Patient is eager to go home. Patient states that all symptoms have improved. Denies any shortness of breath or chest pain. Has been eating well with no abdominal pain, nausea or vomiting. ems educator was in yesterday, diabetes reviewed extensively with patient as well as insulin injections and management. Patient was given BGM machine. Awaiting dietitian today. Blood sugar in the 200s today. Steroids weaned off. Vital signs are stable. Will discharge home today with patient to follow-up with the [facility]. Hospital Course This is a pleasant 67-year-old male patient with a known medical history of hypertension, COPD, asthma and diet-controlled diabetes who presented to the ED with abnormal labs. [facility] was told his blood sugar was over 500 and his potassium was low. Patient's blood sugar was in the 800s upon presentation. He does state that he has been diagnosed with diabetes but this has been diet controlled for over 4 years now. Random glucose 863 on presentation, anion gap closed. Not in DKA. Was given 10 units IV insulin in ED. Was also given another 25 units IV of insulin the first night of stay in the hospital. Patient was placed on Accu-Chek before meals at bedtime, with sliding scale, and covered as needed. Blood sugars in the 200s upon discharge. Patient was also seen by the assistant health educator as well as the dietitian and reviewed extensively regarding diabetes management. Patient was also placed on IV steroids for COPD exacerbation, these were weaned prior to discharge. IV steroids may be contributing to hyperglycemia. Chest x-ray showing left basilar streakiness consistent with atelectasis or scarring. Hypoxia improved upon discharge, at one point patient did require supplemental O2 for short time. Patient was also with acute kidney injury upon presentation Creatinine 1.7 and GFR 40 on presentation. This did improve with creatinine 1.2 , GFR 60. Was given IV fluids during hospitalization. Patient also presented with electrolyte imbalance with hyponatremia hypokalemia, replacement was given and returned to baseline. Patient also has a history of hypertension which was stable during hospitalization as well as hyperlipidemia. Patient was [facility]. Pt Condition on Discharge: Stable Discharge Disposition: Disch w/ Home Health Serv Discharge Time: > 30 minutes Discharge Instructions DIET: Follow Instructions for: Diabetic Diet Activities you can perform: Regular-No Restrictions Follow up Referrals: PCP Follow-up - 1 Week New Medications: Blood Glucose Monitoring W/Device (Blood Glucose Monitoring W/Device) 1 Kit Kit KIT .XX DIRECTED for Blood Sugar Management, #1 0 Refills Blood Glucose Test Strips (Blood Glucose Test Strips) Strips Strip EA .XX DIRECTED for Blood Sugar Management, #1 0 Refills Lancets (Lancets) 1 Mis Mis EA .XX DIRECTED for Blood Sugar Management, #1 0 Refills Metformin (Metformin) 500 Mg Tab 500 MG PO HS for Blood Sugar Management for 30 Days, #30 TAB 0 Refills With a meal Insulin Aspart Inj (Novolog Inj) 100 Unit/Ml Inj 1 UNITS SQ ACHS SLIDING SCALE for diabetes for 30 Days, #1 VIAL 2 Refills Insulin Detemir Inj (Levemir Inj) 1,000 unit/ 10 ML Vial 10 UNITS SQ BID for diabetes for 30 Days, #1 VIAL 2 Refills Do not mix with any other Insulin. Continued Medications: Albuterol 18 GM Inh (Ventolin Hfa 18 GM Inh) 90 Mcg/Act Aer 2 PUFF INH Q4-6H PRN for SHORTNESS OF BREATH, #1 INHALER 0 Refills Amlodipine (Amlodipine) 5 Mg Tab 5 MG PO DAILY for Blood Pressure Management, #30 TAB 0 Refills Atorvastatin (Atorvastatin) 20 Mg Tab 20 MG PO HS for Cholesterol Management, #30 TAB 0 Refills Doxazosin (Doxazosin) 4 Mg Tab 4 MG PO DAILY, #30 TAB 0 Refills Hydrochlorothiazide (Hydrochlorothiazide) 25 Mg Tab 25 MG PO DAILY, #30 TAB 0 Refills Losartan (Losartan) 100 Mg Tab 100 MG PO DAILY for Blood Pressure Management, #30 TAB 0 Refills Mometasone 120 Act Inh (Asmanex 120 Act Twisthaler) 220 Mcg/Act Inh 1 PUFF INH BID for Asthma Management, #1 INHALER 0 Refills Montelukast (Singulair) 10 Mg Tab 10 MG PO HS, #30 TAB 0 Refills Yeny Steward Feb 16, 2018 09:44
[2018-02-16] MEDS ORDERED: INSULIN DETEMIR 100 UNITS/ML VIAL SQ SCH ×2 (09:45→21:00)
[2018-02-16] MEDS ORDERED: HYDROCHLOROTHIAZIDE 25 MG TAB PO SCH (09:45)
[2018-02-16] MEDS ORDERED: LOSARTAN 50 MG TAB PO SCH (09:45)
--- NOTE | 2018-02-16 09:45 | HHI.DCPOC ---
Discharge Care Plan Diagnosis: (1) Hyperglycemia (2) Diabetes (3) Hypokalemia Goals to Promote Your Health * To prevent worsening of your condition and complications * To maintain your health at the optimal level Directions to Meet Your Goals Take your medications as prescribed Follow your dietary instruction Follow activity as directed Keep your appointments as scheduled Take your immunizations and boosters as scheduled If your symptoms worsen call your PCP, if no PCP go to Urgent Care Center or Emergency Room Smoking is Dangerous to Your Health. Avoid second hand smoke Call the 24-hour hour crisis hotline for domestic abuse at Yeny Steward Feb 16, 2018 09:45
[2018-02-16] MEDS ORDERED: METF500T PO (09:48)
[2018-02-16] MEDS ORDERED: metFORMIN HCL 500 MG TAB PO ONE (10:00)
[2018-02-16 13:28] VITALS: BP 170/73; PULSE 76; RESP 15; TEMP 97; O2SAT 97
[2018-02-16] MEDS ORDERED: metFORMIN HCL 500 MG TAB PO SCH (21:00)
== END 2018-02-16 13:41 | disposition home or self-care (01) | DRG 638 ==
LOC: PHED 14:45 → PHEDA 16:08 → PH3B 16:50 → OBSVTOIN 17:12
PROVIDERS: ADMIT Hospitalist; ATTEND Hospitalist
DX: E11.65 Type 2 diabetes mellitus with hyperglycemia (principal); N17.9 Acute kidney failure, unspecified; E87.1 Hypo-osmolality and hyponatremia; J44.1 Chronic obstructive pulmonary disease with (acute) exacerbation; I10 Essential (primary) hypertension; E87.6 Hypokalemia; R09.02 Hypoxemia; E78.5 Hyperlipidemia, unspecified
CPT/HCPCS: 71045; 80048; 80053; 81001; 82010; 82947; 82948; 83036; 83735; 83880; 84132; 85025; 93005; 94640; 94664; J1644; J1815; J2920; J3480; J7030; J7512